=== PATIENT | female | born 1985 | race Caucasian/White ===

== ENCOUNTER 2018-11-04 01:48 | Emergency (ER) | payer OTHER ==
[~2018-11-04] VITALS: Ht 165.1 cm; Wt 69.4 kg
--- NOTE | 2018-11-04 01:50 | NUR ---
PT SEATING IN [facility] W/ [facility] AT SIDE. ERMD AWARE OF PT STATUS.
[2018-11-04 01:51] VITALS: BP 126/82
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
--- NOTE | 2018-11-04 02:00 | NUR ---
DR. DUQUE AT BEDSIDE.
[2018-11-04 02:08] VITALS: BP 126/82
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
== END 2018-11-04 02:08 ==
LOC: MED 01:48
DX: R11.2 Nausea with vomiting, unspecified (principal); Z02.89 Encounter for other administrative examinations; J45.909 Unspecified asthma, uncomplicated; V89.2XXA Person injured in unspecified motor-vehicle accident, traffic, initial encounter; Y93.89 Activity, other specified; Y92.89 Other specified places as the place of occurrence of the external cause; Y99.8 Other external cause status
CPT/HCPCS: 99283